=== PATIENT | female | born 1985 | race Caucasian/White ===

== ENCOUNTER 2017-01-05 03:16 | Emergency (ER) | payer OTHER ==
[2017-01-05 04:53] LABS: HEMOGLOBIN 15.1 gm/dl (12.3-15.3); RED BLOOD COUNT 5.04 M/UL (4.00-5.10); WHITE BLOOD COUNT 8.6 K/UL (4.5-11.0)
[2017-01-05 05:04] LABS: BUN/CREATININE RATIO 22 (0-10)
== END 2017-01-05 06:30 | disposition home or self-care (01) ==
LOC: ER1 03:16
PROVIDERS: Family Medicine
DX: N30.90 Cystitis, unspecified without hematuria (principal); E11.9 Type 2 diabetes mellitus without complications; Z88.8 Allergy status to other drugs, medicaments and biological substances; Z79.84 Long term (current) use of oral hypoglycemic drugs; Z79.899 Other long term (current) drug therapy
CPT/HCPCS: 36415; 80053; 81001; 82150; 83690; 84703; 85025; 96374; 96375; 99283; J0696; J2270; J2405; J7050

== ENCOUNTER 2017-04-06 18:54 | Emergency (ER) | payer OTHER ==
[2017-04-06 22:18] LABS: HEMOGLOBIN 16.1 gm/dl (12.3-15.3); RED BLOOD COUNT 5.39 M/UL (4.00-5.10)
[2017-04-06 22:37] LABS: BUN/CREATININE RATIO 23 (0-10)
== END 2017-04-07 01:09 | disposition home or self-care (01) ==
LOC: ER1 18:54
PROVIDERS: Emergency Medicine
DX: R10.84 Generalized abdominal pain (principal); R19.7 Diarrhea, unspecified; R11.10 Vomiting, unspecified; Z88.8 Allergy status to other drugs, medicaments and biological substances
CPT/HCPCS: 36415; 80053; 81001; 82150; 83690; 84703; 85025; 96374; 99284; J2405; J7030